=== PATIENT | female | born 1990 | race Caucasian/White ===

== ENCOUNTER 2017-07-07 20:41 | Emergency (ER) | payer BC ==
[~2017-07-07] VITALS: Ht 160 cm; Wt 136.4 kg
[~2017-07-07 20:41] MED LIST: ANTIDEPRESSANT; CALCIUM1 CAP PO; CAMILA0.35 MG PO; CITALOPRAM10 MG PO; FEMCON FE PO; LEVOTHYROXINE0.2 M2 PO; LORTAB 5/500 501 TAB PO; MIRENA52 MG IU; NAPROSYN500 MG PO; NORCO 325 MG-51 TAB PO; NORCO 325 MG-7.1 TAB PO; PHENERGAN 25 TA25 MG PO; PHENERGAN25 MG RC; SYNTHROID0.3 MG PO
[2017-07-07 20:54] VITALS: BP 133/78; TEMP 98.6
[2017-07-07 21:38] LABS: BASO # 0.1 (0.0-0.2); BASO % 0.9 % (0.0-2.0); EOS # 0.4 (0.0-0.7); EOS % 3.3 % (0-4.0); GRAN # 7.4 (1.4-6.5); GRAN % 57.7 % (42.2-75.2); HEMATOCRIT 43.5 % (37.0-47.0); HEMOGLOBIN 14.3 g/dl (12.5-16.0); LYMPH % 30.6 % (20.0-51.0); MEAN CELL VOLUME 93 fl (80.0-100.0); MEAN CORPUSCULAR HEMOGLOBIN 31 pg (27.0-31.0); MEAN CORPUSCULAR HGB CONC 33 g/dl (33.0-37.0); MEAN PLATELET VOLUME 9.1 fl (7.4-10.4); MONO # 0.9 (0.1-0.6); MONO % 6.6 % (1.7-9.3); PLATELET COUNT 343 K/mm3 (130-400); RED BLOOD COUNT 4.69 M/mm3 (4.10-5.30); WHITE BLOOD COUNT 12.9 K/mm3 (4.8-10.8)
[2017-07-07 21:46] LABS: CALCIUM 7.7 mg/dL (8.4-10.2); CREATININE, serum 0.81 mg/dL (0.52-1.25); POTASSIUM 3.8 mmol/L (3.4-5.0)
[2017-07-07 21:58] VITALS: PULSE 75
== END 2017-07-07 22:09 | disposition home or self-care (01) ==
LOC: COL.ER 20:41
PROVIDERS: Nurse Practitioner
DX: N92.0 Excessive and frequent menstruation with regular cycle (principal); Z98.890 Other specified postprocedural states